=== PATIENT | male | born 1955 | race Caucasian/White ===

== ENCOUNTER 2016-12-29 18:43 | Emergency (ER) | payer OTHER ==
--- NOTE | ~2016-12-29 | CR141 ---
[facility] A Service of [facility] & [facility] RADIOLOGY TEXT RESULTS PATIENT: TAYLOR MOONEY LOCATION: CFTX : 53 UNIT #: [id number] AGE: [address]: Travis Fulton SEX: M ORDER DR: [id number] [facility] [address] [place], [place] [address] [id number] MR#: [id number] Acc #: [id number] NAME: TAYLOR MOONEY : 1955 SEX: M STUDY DATE/TIME: 12/29/2016 21:23 UNIT: [facility] ROOM: STUDY DESCRIPTION: CR Hand Min 3 Views Lt Attending Physician: Travis Fulton P.A.-C. Ordering Physician: Travis Fulton P.A.-C. Primary Care Physician: No Primary Care Physician MEDICAL IMAGING REPORT This report is preliminary unless electronic signature is present EXAM Hand 3 views left. HISTORY Left hand pain and swelling starting today after patient fell getting hand caught in a chain length fence. COMMENT Three views of the left hand reviewed. There are mild changes of osteoarthritis. There is dislocation at the fourth PIP joint. The middle phalanx is displaced dorsally and migrated proximally with respect to the proximal phalanx. Proximal migration is about 8 mm. No definite fracture is seen. Please correlate for clinical evidence of ligamentous injury. IMPRESSION Findings are consistent with dislocation of the left fourth PIP joint with the middle phalanx displaced dorsally and proximally with respect to the proximal phalanx. Dictated by... Pam Duarte M.D. THIS IS AN ELECTRONICALLY VERIFIED REPORT Pam Duarte M.D. at 12/30/2016 2:27 PM SAMAN/leona TD: 12/30/2016 09:10 JOB #: [id number] MEDICAL IMAGING REPORT Page 1 of 1 COPY
== END 2016-12-29 22:51 | disposition home or self-care (01) ==
LOC: CED 18:43 → CFTX 18:43
DX: S63.275A Dislocation of unspecified interphalangeal joint of left ring finger, initial encounter (principal); F17.210 Nicotine dependence, cigarettes, uncomplicated; W22.8XXA Striking against or struck by other objects, initial encounter; Y92.009 Unspecified place in unspecified non-institutional (private) residence as the place of occurrence of the external cause
CPT/HCPCS: 26770; 73130; 99283